=== PATIENT | male | born 1985 | race Caucasian/White ===

== ENCOUNTER 2017-05-27 01:16 | Emergency (ER) | payer BC, OTHER ==
[~2017-05-27] VITALS: Ht 182.9 cm; Wt 98.0 kg
[~2017-05-27 01:16] MED LIST: ASPI81TA28 PO; MULT-506 PO
[2017-05-27 01:20] VITALS: TEMP 36.8; Ht 182.9 cm; Wt 98.0 kg
[2017-05-27] MEDS ORDERED: OXYMETAZOLINE HCL 0.05% NA SPR 15 ML BTL ONE ×2 (01:27→01:45)
[2017-05-27] MEDS ORDERED: PROPARACAINE HCL 0.5% OP SOLN 15 ML BTL OP STA (01:37)
[2017-05-27] MEDS ORDERED: CEPHALEXIN 500MG HOME PACK 1 EA BTL PO ONE (01:45)
[2017-05-27] MEDS ORDERED: FLEC50TA20 PO (01:48)
[2017-05-27 02:07] LABS: BASO % 0.3 %; BASO ABS # 0.02 K/uL (0-0.2); EOS % 1.5 %; EOS ABS # 0.09 K/uL (0-0.5); HEMATOCRIT 42.9 % (42-52); HEMOGLOBIN 16.2 g/dL (14.0-18.0); IG# 0.01 K/uL (0.00-0.02); LYMPH ABS # 2.62 K/uL (1.2-3.4); MEAN CELL VOLUME 85.6 fL (80-100); MEAN CORPUSCULAR HEMOGLOBIN 32.3 pg (25-34); MEAN CORPUSCULAR HGB CONC 37.8 g/dl (32-36); MEAN PLATELET VOLUME 9.7 fL (7.4-10.4); MONO % 5.4 %; MONO ABS # 0.32 K/uL (0.11-0.59); NEUT % 48.6 %; NEUT ABS # 2.89 K/uL (1.4-6.5); PLATELET COUNT 254 K/uL (130-400); RED CELL DISTRIBUTION WIDTH CV 13.2 % (11.5-14.5); RED CELL DISTRIBUTION WIDTH SD 41.1 fL (36.4-46.3); WHITE BLOOD COUNT 5.95 K/uL (4.8-10.8)
[2017-05-27 02:18] LABS: INR 0.9 (0.9-1.1); PTT PATIENT 27.5 SECONDS (21.0-31.0)
[2017-05-27] MEDS ORDERED: CEPH500C2 PO (02:30)
[2017-05-27 02:43] VITALS: BP 209/140; PULSE 108; O2SAT 98
--- NOTE | 2017-05-27 02:45 | EMERGENCY ROOM VISIT NOTE ---
History First contact with patient: 01:25 Chief Complaint: NOSE BLEED (MINOR) Stated Complaint: NOSE BLEED History of Present Illness The patient is a 32 year old male who presents to the Emergency Room with complaints of nosebleed tonight. Patient had a few nosebleeds in the past. He has not seen an ENT specialist for this. Patient states he was having a beer with friends and then tasted blood and noticed he had a nosebleed. No trauma to the area. Patient states he has high blood pressure but does not want to take medication for this. Patient denies headache, chest pain, dyspnea, bleeding disorders, lightheadedness, dizziness. No drug use. Review of Systems An 10 system review of systems was completed with positives and pertinent negatives listed in the HPI. Past Medical/Surgical History Medical Problems: (1) SVT (supraventricular tachycardia) Family History Heart disease Hypertension Social History Smoking Status: Never Smoker Alcohol Use: occasionally Marital Status: single Occupation Status: employed Current/Historical Medications Scheduled Cephalexin Monohydrate (Keflex), 500 MG PO QID Flecainide (Tambocor), 50 MG PO BID Physical Exam Vital Signs Date Time Temp Pulse Resp B/P (MAP) Pulse Ox O2 Delivery O2 Flow Rate FiO2 05/27/17 01:56 110 20 179/134 96 Room Air 05/27/17 01:20 36.8 124 20 196/137 98 Room Air Physical Exam VITALS: Vitals are noted on the nurse's note and reviewed by myself. Vital signs hypertensive. GENERAL: Pleasant male with EtOH odor, in no acute distress, nondiaphoretic, well-developed well-nourished. SKIN: The skin was without rashes, erythema, edema, or bruising. There is no tenting of the skin. Capillary reflex less than 2 seconds. HEAD: Normocephalic atraumatic. EARS: External auditory canals clear, tympanic membranes pearly heredia without erythema or effusion bilaterally. EYES: Pupils equal round and reactive to light and accommodation. Conjunctivae without injection, sclerae without icterus. Extraocular movements intact. NOSE: Patent, turbinates with inflammation present and active bleeding from the left naris from the [place] area without septal hematoma bilaterally no sinus tenderness. MOUTH: Mucous membranes moist. Pharynx without erythema or exudate. Uvula midline. Airway patent. Tongue does not deviate. NECK: Supple without nuchal rigidity. No lymphadenopathy. No thyromegaly. Cervical spine is nontender. No JVD. HEART: Regular rate and rhythm without murmurs gallops or rubs. LUNGS: Clear to auscultation bilaterally without wheezes, rales or rhonchi. No retractions or accessory muscle use. ABDOMEN: Positive bowel sounds x 4. Normal tympanic percussion. Soft, nontender, without masses or organomegaly. Cooper sign negative. No guarding or rebound tenderness. No CVA tenderness MUSCULOSKELETAL: No muscle atrophy, erythema, or edema noted. NEURO: Patient was alert and oriented to person place and time. Normal sensation to light and sharp touch. No focal neurological deficits. Medical Decision & Procedures Laboratory Results 05/27/17 01:50 Red Blood Count 5.01, Mean Corpuscular Volume 85.6, Mean Corpuscular Hemoglobin 32.3, Mean Corpuscular Hemoglobin Concent 37.8, Mean Platelet Volume 9.7, Neutrophils (%) (Auto) 48.6, Lymphocytes (%) (Auto) 44.0, Monocytes (%) (Auto) 5.4, Eosinophils (%) (Auto) 1.5, Basophils (%) (Auto) 0.3, Neutrophils # (Auto) 2.89, Lymphocytes # (Auto) 2.62, Monocytes # (Auto) 0.32, Eosinophils # (Auto) 0.09, Basophils # (Auto) 0.02 Test 05/27/17 01:50 White Blood Count 5.95 K/uL (4.8-10.8) Red Blood Count 5.01 M/uL (4.7-6.1) Hemoglobin 16.2 g/dL (14.0-18.0) Hematocrit 42.9 % (42-52) Mean Corpuscular Volume 85.6 fL (80-100) Mean Corpuscular Hemoglobin 32.3 pg (25-34) Mean Corpuscular Hemoglobin Concent 37.8 g/dl (32-36) Platelet Count 254 K/uL (130-400) Mean Platelet Volume 9.7 fL (7.4-10.4) Neutrophils (%) (Auto) 48.6 % Lymphocytes (%) (Auto) 44.0 % Monocytes (%) (Auto) 5.4 % Eosinophils (%) (Auto) 1.5 % Basophils (%) (Auto) 0.3 % Neutrophils # (Auto) 2.89 K/uL (1.4-6.5) Lymphocytes # (Auto) 2.62 K/uL (1.2-3.4) Monocytes # (Auto) 0.32 K/uL (0.11-0.59) Eosinophils # (Auto) 0.09 K/uL (0-0.5) Basophils # (Auto) 0.02 K/uL (0-0.2) RDW Standard Deviation 41.1 fL (36.4-46.3) RDW Coefficient of Variation 13.2 % (11.5-14.5) Immature Granulocyte % (Auto) 0.2 % Immature Granulocyte # (Auto) 0.01 K/uL (0.00-0.02) Prothrombin Time 9.8 SECONDS (9.0-12.0) Prothromb Time International Ratio 0.9 (0.9-1.1) Activated Partial Thromboplast Time 27.5 SECONDS (21.0-31.0) Partial Thromboplastin Ratio 1.1 Medications Administered Medications (Trade) Dose Ordered Sig/Dena Route Start Time Stop Time Status Last Admin Dose Admin Oxymetazoline HCl (Afrin 0.05% Nasal [place]) 75 sprays STK-MED ONCE .ROUTE 05/27/17 01:27 05/27/17 01:28 DC 05/27/17 01:31 75 SPRAYS Cephalexin Monohydrate (Keflex 500MG Home Pack) 1 homepack NOW ONCE PO 05/27/17 01:45 05/27/17 01:46 DC 05/27/17 01:45 1 HOMEPACK Procedure Anterior Nasal Packing Indication: Epistaxis Verbal consent obtained. Risks and benefits were explained with the usual customary discussion. A time out was taken. Clots were removed with suction. The left naris was prepped with Afrin and lidocaine. A 5.5-cm nasal balloon was placed in a standard fashion with 4 cc of air. The patient tolerated this well. Hemostasis was achieved. No complications. ED Course Prior records/ancillary studies reviewed. Triage Nursing notes reviewed. Additional history obtained from friend The patient's history was concerning for epistaxis. Differential diagnosis: Etiologies such as anterior epistaxis, coagulopathy, traumatic injury, fracture , septal hematoma, posterior epistaxis as well as other pathologies were entertained. Physical examination findings: As above. Anterior bleeding source. ER treatment provided: Direct pressure Intranasal phenylephrine Anterior nasal packing as above Keflex PO On reassessment the patient felt better. Diagnostics interpreted by me: The labs revealed stable H&H and normal coags This appears to be consistent with anterior epistaxis with untreated hypertension. Patient had a few nosebleeds in the past with no blood work. This was ordered. This is unremarkable. Patient was strongly encouraged to seek treatment for his high blood pressure. He states he does not like to take medicines and will not take anything for his blood pressure. He was strongly encouraged to decrease his caffeine, alcohol, tobacco and salt intake. He is advised to return in 48 hours for nasal packing removal and to take antibiotics as directed. He is advised to return to the ER immediately for headache, chest pain, bleeding, worsening sinus symptoms or as needed. Patient was neurovascularly and neurologically intact. He is well-appearing. He did not appear intoxicated. He states he has only had a few beers. By the evaluation outlined above emergent etiologies such as coagulopathy, traumatic injury, fracture, septal hematoma, posterior epistaxis, as well as others were deemed relatively unlikely. The pt informed about the findings as listed above. All questions were answered and pleased with the treatment. Return instructions were outlined and the patient was discharged in stable condition. Outpatient prescription management: Keflex Referral: The patient was referred to ENT or the ER in 2 days for a recheck of the current condition Case reviewed with my attending The chart was completed utilizing [employer] Speech voice recognition software. Grammatical errors, random word insertions, pronoun errors, and incomplete sentences are an occassional consequence of this system due to software limitations, ambient noise, and hardware issues. Any formal questions or concerns about the content, text, or information contained within the body of this dictation should be directly addressed to the physician lead dental assistant for clarification. Medical Decision As above Medication Reconcilliation Current Medication List: was personally reviewed by me Blood Pressure Screening Patient's blood pressure: Elevated blood pressure Blood pressure disposition: Referred to PCP Impression Primary Impression: Epistaxis Additional Impression: high blood pressure Departure Information Dispostion Home / Self-Care Condition GOOD Prescriptions Cephalexin Monohydrate (KEFLEX) 500 Mg Cap 500 MG PO QID for 4 Days, #16 CAP Prov: Luisa Perry .ALIZA 05/27/17 Referrals No Doctor, Assigned (PCP) Liv Bowman M.D. Forms WORK / SCHOOL INSTRUCTIONS, HOME CARE DOCUMENTATION FORM, IMPORTANT VISIT INFORMATION Patient Instructions Nosebleeds - [facility], My [facility] Additional Instructions Your blood pressure is high today and for the past several years. I strongly recommend that you seek treatment for this. Untreated blood pressure can cause stroke heart attack and/or . Recommend that you decrease your caffeine, alcohol, tobacco and salt intake. Keflex 4 times a day for 5 days.All antibiotics can cause diarrhea. If this occurs and you feel worse or it does not resolve in 1-2 days follow up with your doctor or return to the Emergency Department as this could be signs of serious underlying problems. Any medication can cause an allergic reaction, stop the pills immediately and return to the ER for rash, hives, breathing difficulties, or swelling. Have your nasal packing removed in 2-3 days either in the ER or with ENT. Do not pull this out as you can further injure your nasal septum. Avoid scratching, rubbing, picking, or blowing your nose. The label drier your nasal passages the more likely they are to bleed. The following two products are available [id number] at most drug stores/pharmacies. Panola [place] nasal spray or similar generic saline spray to keep the nose moist 3 to 4 times a day. If bleeding recurs apply direct pressure for an uninterrupted 20 minutes. On and off pressure is much less effective because it will disturb the clots that are forming. If the bleeding is still a problem after 20 minutes or is so heavy despite the pressure return to the emergency department. Continue current medications. For ENT([id number]) follow up call Dr. Krishna office at [phone] for an appointment this week. Tell the stenographer secretary you were referred from the ER. Follow-up with your primary care physician in 2 to 3 days for a recheck of your current condition for your blood pressure. Return to the ER sooner for fevers, pain, bleeding, worsening signs or symptoms or as needed. Problem Qualifiers
[2017-05-27] MEDS ORDERED: ACET-1256 PO (20:40)
[2017-05-27] MEDS ORDERED: HYDR-5688 PO (21:29)
[2017-05-28] MEDS ORDERED: LISI10TA PO (07:14)
== END 2017-05-27 02:45 | disposition home or self-care (01) ==
LOC: C.EDB 01:17
DX: R04.0 Epistaxis (principal); R03.0 Elevated blood-pressure reading, without diagnosis of hypertension; Z82.49 Family history of ischemic heart disease and other diseases of the circulatory system; Z79.899 Other long term (current) drug therapy

== ENCOUNTER 2017-05-27 19:16 | Emergency (ER) | payer OTHER ==
[~2017-05-27] VITALS: Ht 182.9 cm; Wt 95.2 kg
[~2017-05-27 19:16] MED LIST changes: +CEPH500C2 PO; +FLEC50TA20 PO
[2017-05-27 19:19] VITALS: O2SAT 99; Ht 182.9 cm; Wt 95.2 kg
[2017-05-27] MEDS ORDERED: OXYMETAZOLINE HCL 0.05% NA SPR 15 ML BTL ONE (19:28)
[2017-05-27] MEDS ORDERED: ACET-1256 PO (20:40)
[2017-05-27 20:59] VITALS: BP 198/136; PULSE 85
[2017-05-27] MEDS ORDERED: HYDR-5688 PO (21:29)
[2017-05-27] MEDS ORDERED: NORCO 5/325MG HOME PACK PO ONE (21:30)
--- NOTE | 2017-05-27 23:47 | EMERGENCY ROOM VISIT NOTE ---
History First contact with patient: 19:23 Chief Complaint: NOSE BLEED (MINOR) Stated Complaint: REEVALUATE NOSE BLEED History of Present Illness The patient is a 32 year old male who presents to the Emergency Room bleeding from the right side of his nose. The patient was seen about 16 hours ago at this facility with bleeding from the left side of the nose. A rapid Rhino was placed at that initial visit and the patient was started on Keflex. The patient states that he had been doing well for several hours, but had spontaneous bleeding from the right side nares that began about 20 minutes ago. He is not complaining of head pain, neck pain, chest pain, or shortness of breath. He rates his current discomfort a 4/10. Review of Systems More than 10 systems were reviewed and otherwise negative with the exception of history of present illness. Past Medical/Surgical History Medical Problems: (1) SVT (supraventricular tachycardia) Family History Heart disease Hypertension Social History Smoking Status: Former Smoker Alcohol Use: occasionally Marital Status: single Occupation Status: employed Current/Historical Medications Scheduled Cephalexin Monohydrate (Keflex), 500 MG PO QID Flecainide (Tambocor), 50 MG PO BID Scheduled PRN Acetaminophen (Tylenol), 1,000 MG PO BID PRN for Pain Hydrocodone/Acetaminophen 5MG/325MG (Red Devil 5MG/325MG), 1 TABLET PO Q6 PRN for Pain Physical Exam Vital Signs Date Time Temp Pulse Resp B/P (MAP) Pulse Ox O2 Delivery O2 Flow Rate FiO2 05/27/17 20:59 85 16 195/102 198/136 05/27/17 19:19 128 20 210/121 99 Room Air Physical Exam VITALS: Vitals are noted on the nurse's note and reviewed by myself. Vital signs with elevated blood pressure GENERAL: Anxious appearing white male who is cooperative with the examination. NOSE: Rapid Rhino appreciated in the left side nares. There is red blood in the right nares with what appears to be an anterior origin. MOUTH: Mucous membranes moist. Tonsils are not enlarged. Mild amount of bright red blood is noted in the posterior pharynx NECK: Supple without nuchal rigidity. No lymphadenopathy. No thyromegaly. Cervical spine is nontender. HEART: Regular rate and rhythm without murmurs gallops or rubs. LUNGS: Clear to auscultation bilaterally without wheezes, rales or rhonchi. No retractions or accessory muscle use. Medical Decision & Procedures Medications Administered Medications (Trade) Dose Ordered Sig/Dena Route Start Time Stop Time Status Last Admin Dose Admin Acetaminophen/ Hydrocodone Bitart (Red Devil 5/325mg Home Pack) 1 homepack UD ONCE PO 05/27/17 21:30 05/27/17 21:31 DC 05/27/17 21:30 1 HOMEPACK ED Course Physical exam and history were performed. Nursing notes, EMR, and Medication List were personally reviewed. Patient appears to have epistaxis that began about 20 minutes ago. He had a similar episode earlier today and had a left-sided packing placed. Afrin was pulled by nursing and placed into the right side nares. I initially attempted to place a 7.5 cm rapid Rhino, however I was not able to advance this. Afterwards a 4.5 cm rapid Rhino was positioned and inflated. This did help provide hemostasis. The patient appears anxious on examination he does have elevated blood pressure. I did offer him medication to assist with this, however he states that he is driving home and is not able to get a ride. He does not wish for anything for his blood pressure at this time. The patient had significant improvement of the bleeding after the placement of the second Rhino Rocket, however he did have some very mild persistent spitting of blood into an emesis bag. Reevaluation of the posterior pharynx does not show significant signs of a posterior bleed. The case was reviewed with my attending physician, and unfortunately we do not have formal ENT operations technician at the [facility]. Overall the patient was monitored for nearly 3 hours here in the emergency department without significant rebleeding episode. Near the end of his ER stay, the patient sneezed, and partially dislodged the right side packing. This was removed, and I was able to further inspect the right side nares, which appears to show an anterior bleeding origin. A second rapid Rhino was placed into the right side nares and inflated. The patient tolerated this well. He continued without significant bleeding episode. The patient will need to follow with ENT regarding the nosebleeding, as well as his primary care physician regarding the blood pressure. He is to continue his antibiotics. I will give him a short course of Vicodin for pain control. He was otherwise invited back to the ER with any new, worsening, or concerning symptoms. The chart was completed utilizing [employer] Speech Voice Recognition Software. Grammatical errors, random word insertions, pronoun errors, and incomplete sentences are an occasional consequence of this system due to software limitations, ambient noise, and hardware issues. Any formal questions or concerns about the content, text, or information contained within the body of this dictation should be directly addressed to the provider for clarification. . Medical Decision Differential diagnosis: Etiologies such as anterior epistaxis, coagulopathy, traumatic injury, fracture , septal hematoma, posterior epistaxis as well as other pathologies were entertained. Impression Primary Impression: Epistaxis Additional Impression: Hypertension Departure Information Dispostion Home / Self-Care Condition FAIR Prescriptions Hydrocodone/Acetaminophen 5MG/325MG (Red Devil 5MG/325MG) Tab 1 TABLET PO Q6 Y for Pain, #12 TAB For Initial Treatment Prov: Angel Acevedo PA-C 05/27/17 Referrals No Doctor, Assigned (PCP) Liv Bowman M.D. Forms HOME CARE DOCUMENTATION FORM, IMPORTANT VISIT INFORMATION Patient Instructions My [facility] Additional Instructions You were seen and evaluated today on an emergency basis only. This is not a substitute for, or an effort to provide, complete comprehensive medical care. It is not possible to recognize and treat all injuries or illnesses in a single emergency department visit. For this reason it is recommended that you followup with ENT, Dr. Bowman's office, by telephone in the morning to arrange a follow-up. Continue your antibiotics as previously prescribed. Red Devil (hydrocodone/acetaminophen) 5/325 mg every 6 hours as needed for worsening breakthrough pain. Do not drink or drive on Red Devil. This medication will likely make you tired. Do not take Red Devil and Tylenol at the same time as both contain acetaminophen. Red Devil may cause constipation. You may wish to take an [id number] stool softener like Colace if this occurs. You are welcome to return to the emergency department anytime with new, worsening, or concerning symptoms. Problem Qualifiers
[2017-05-28] MEDS ORDERED: LISI10TA PO (07:14)
== END 2017-05-27 22:00 | disposition home or self-care (01) ==
LOC: C.EDB 19:17 → C.EDD 22:00
DX: R04.0 Epistaxis (principal); R03.0 Elevated blood-pressure reading, without diagnosis of hypertension; I47.1 Supraventricular tachycardia; Z87.891 Personal history of nicotine dependence; Z82.49 Family history of ischemic heart disease and other diseases of the circulatory system

== ENCOUNTER 2017-05-27 22:58 | Emergency (ER) | payer OTHER ==
[~2017-05-27] VITALS: Ht 182.9 cm; Wt 90.0 kg
[~2017-05-27 22:58] MED LIST changes: +ACET-1256 PO; +HYDR-5688 PO
[2017-05-27 23:01] VITALS: Ht 182.9 cm; Wt 90.0 kg
[2017-05-27] MEDS ORDERED: OXYMETAZOLINE HCL 0.05% NA SPR 15 ML BTL ONE (23:12)
--- NOTE | 2017-05-27 23:18 | EMERGENCY ROOM VISIT NOTE ---
History Report prepared by Mg: Dashawn Hinton Under the Supervision of: Dr. Dayana Billingsley M.D. First contact with patient: 23:08 Chief Complaint: NOSE BLEED (MINOR) Stated Complaint: NOSE BLEED History of Present Illness The patient is a 32 year old male who presents to the Emergency Room for a severe and constant nose bleed that began around 0200 this morning, 21 hours ago. This is the patient's third visit to the ER in the past 24 hours due to this nose bleed. The patient first came to the ED at 0230 this morning and had a rhino rocket placed in the left nostril. He went home and the bleeding stopped for a short time until the nose began to bleed through the right naris. He came back in about 90 minutes ago and had another rhino rocket placed in the right nostril. The blood is now draining down the back of his throat. He does complain of pain in the nose. 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 A total of 10 systems reviewed and were otherwise negative. Past Medical & Surgical Medical Problems: (1) SVT (supraventricular tachycardia) Afib Atrial fibrillation Cocaine use SVT (supraventricular tachycardia) Family History Heart disease Hypertension Social History Smoking Status: Never Smoker Alcohol Use: occasionally Drug Use: cocaine Marital Status: single Occupation Status: employed Current/Historical Medications Scheduled Cephalexin Monohydrate (Keflex), 500 MG PO QID Flecainide (Tambocor), 50 MG PO BID Lisinopril (Prinivil), 10 MG PO DAILY Scheduled PRN Acetaminophen (Tylenol), 1,000 MG PO BID PRN for Pain Hydrocodone/Acetaminophen 5MG/325MG ([place] 5MG/325MG), 1 TABLET PO Q6 PRN for Pain Allergies Coded Allergies: Ciprofloxacin (Verified Allergy, Intermediate, FACIAL/ARM SWELLING, ) Physical Exam Vital Signs Date Time Temp Pulse Resp B/P (MAP) Pulse Ox O2 Delivery O2 Flow Rate FiO2 05/28/17 07:00 83 122/79 05/28/17 06:39 84 05/28/17 06:28 119/70 05/28/17 05:46 76 14 05/28/17 05:41 82 14 05/28/17 05:01 128/92 05/28/17 04:41 79 14 05/28/17 04:36 77 14 05/28/17 04:31 130/83 05/28/17 04:06 92 16 05/28/17 04:01 122/84 05/28/17 03:41 95 16 05/28/17 03:31 140/89 05/28/17 03:22 76 05/28/17 03:11 85 16 05/28/17 03:06 86 16 05/28/17 03:01 146/91 05/28/17 02:31 164/106 05/28/17 02:11 92 16 05/28/17 02:06 88 16 05/28/17 02:01 164/107 05/28/17 01:56 170/111 05/28/17 01:55 171/118 05/28/17 01:50 182/117 05/28/17 01:34 174/120 05/28/17 01:21 81 17 184/123 97 Room Air 05/28/17 01:21 184/123 05/28/17 01:06 81 12 98 05/28/17 01:01 81 12 161/121 98 Room Air 05/28/17 00:31 85 10 148/113 96 Room Air 05/28/17 00:26 77 14 160/113 97 Room Air 05/28/17 00:21 83 18 152/117 96 Room Air 05/28/17 00:17 83 14 157/117 95 Room Air 05/28/17 00:11 84 19 128/107 95 Room Air 05/28/17 00:10 86 16 169/115 96 Room Air 05/28/17 00:06 86 11 162/115 96 Room Air 05/28/17 00:01 85 24 172/115 96 Room Air 05/27/17 23:56 88 16 166/107 93 Room Air 05/27/17 23:51 85 14 163/114 95 Room Air 05/27/17 23:51 88 05/27/17 23:51 84 10 163/114 98 Room Air 05/27/17 23:47 89 16 159/118 98 Room Air 05/27/17 23:44 93 16 168/125 98 Room Air 05/27/17 23:01 111 22 183/151 98 Room Air Physical Exam Vital signs reviewed. General: Patient is anxious and hypertensive on exam. HEENT: No scleral icterus, PERRLA, neck supple. Atraumatic. The patient is bleeding dark red blood from the nose down the back of the throat. Patient is vomiting dark red blood. Cardiovascular: Tachycardic rate and regular rhythm, no extra sounds. Pulmonary: Clear to auscultation bilaterally, normal work of breathing. Abdomen: Soft, nontender, nondistended, positive bowel sounds. Musculoskeletal: Atraumatic, no peripheral edema. Neurologic: Patient awake alert and oriented x 3, full strength in all 4 extremities. Cranial nerves 2 through 12 grossly intact. Skin: Warm, dry, no rash Medical Decision & Procedures Laboratory Results 05/27/17 23:46 Red Blood Count 5.26, Mean Corpuscular Volume 85.0, Mean Corpuscular Hemoglobin 32.1, Mean Corpuscular Hemoglobin Concent 37.8, Mean Platelet Volume 10.2, Neutrophils (%) (Auto) 67.0, Lymphocytes (%) (Auto) 26.6, Monocytes (%) (Auto) 5.7, Eosinophils (%) (Auto) 0.3, Basophils (%) (Auto) 0.2, Neutrophils # (Auto) 9.28, Lymphocytes # (Auto) 3.68, Monocytes # (Auto) 0.79, Eosinophils # (Auto) 0.04, Basophils # (Auto) 0.03 05/28/17 05:17 05/27/17 23:46 Test 05/27/17 23:46 White Blood Count 13.85 K/uL (4.8-10.8) Red Blood Count 5.26 M/uL (4.7-6.1) Hemoglobin 16.9 g/dL (14.0-18.0) Hematocrit 44.7 % (42-52) Mean Corpuscular Volume 85.0 fL (80-100) Mean Corpuscular Hemoglobin 32.1 pg (25-34) Mean Corpuscular Hemoglobin Concent 37.8 g/dl (32-36) Platelet Count 300 K/uL (130-400) Mean Platelet Volume 10.2 fL (7.4-10.4) Neutrophils (%) (Auto) 67.0 % Lymphocytes (%) (Auto) 26.6 % Monocytes (%) (Auto) 5.7 % Eosinophils (%) (Auto) 0.3 % Basophils (%) (Auto) 0.2 % Neutrophils # (Auto) 9.28 K/uL (1.4-6.5) Lymphocytes # (Auto) 3.68 K/uL (1.2-3.4) Monocytes # (Auto) 0.79 K/uL (0.11-0.59) Eosinophils # (Auto) 0.04 K/uL (0-0.5) Basophils # (Auto) 0.03 K/uL (0-0.2) RDW Standard Deviation 41.0 fL (36.4-46.3) RDW Coefficient of Variation 13.3 % (11.5-14.5) Immature Granulocyte % (Auto) 0.2 % Immature Granulocyte # (Auto) 0.03 K/uL (0.00-0.02) Anion Gap 11.0 mmol/L (3-11) Est Creatinine Clear Calc Drug Dose 83.8 ml/min Estimated GFR () 77.2 Estimated GFR (Non- 66.6 BUN/Creatinine Ratio 13.6 (10-20) Calcium Level 9.7 mg/dl (8.5-10.1) Total Bilirubin 1.3 mg/dl (0.2-1) Direct Bilirubin 0.2 mg/dl (0-0.2) Aspartate Amino Transf (AST/SGOT) 37 U/L (15-37) Alanine Aminotransferase (ALT/SGPT) 59 U/L (12-78) Alkaline Phosphatase 104 U/L (45-117) Total Protein 8.6 gm/dl (6.4-8.2) Albumin 4.2 gm/dl (3.4-5.0) Laboratory results per my review. Medications Administered Medications (Trade) Dose Ordered Sig/Dena Route Start Time Stop Time Status Last Admin Dose Admin Lorazepam (Ativan Tab) 1 mg STK-MED ONCE .ROUTE 05/27/17 23:21 05/27/17 23:22 DC 05/27/17 23:27 1 MG Labetalol HCl (Normodyne IV) 10 mg NOW STAT IV 05/27/17 23:25 05/27/17 23:27 DC 05/27/17 23:43 10 MG Ondansetron HCl (Zofran Inj) 4 mg STK-MED ONCE .ROUTE 3/27/18 23:36 05/27/17 23:37 DC 05/27/17 23:42 4 MG Sodium Chloride 1,000 ml @ 999 mls/hr Q1H1M STAT IV 05/28/17 00:24 05/28/17 01:24 DC 05/28/17 00:45 999 MLS/HR Chlorthalidone (Hygroton Tab) 25 mg NOW STAT PO 05/28/17 00:24 05/28/17 00:26 DC 05/28/17 00:43 25 MG Lisinopril (Zestril Tab) 10 mg NOW STAT PO 05/28/17 00:50 05/28/17 00:51 DC 05/28/17 01:22 10 MG Hydralazine HCl (HydrALAZINE INJ) 10 mg NOW STAT IV. 05/28/17 01:40 05/28/17 01:41 DC 05/28/17 01:49 10 MG Oxymetazoline HCl (Afrin 0.05% Nasal [place]) 75 sprays STK-MED ONCE .ROUTE 05/28/17 01:41 05/28/17 01:42 DC 05/28/17 01:41 75 SPRAYS Acetaminophen (Tylenol Tab) 650 mg NOW STAT PO 05/28/17 02:09 05/28/17 02:10 DC 05/28/17 02:22 650 MG Lorazepam (Ativan Tab) 1 mg NOW STAT SL 05/28/17 02:12 05/28/17 02:14 DC 05/28/17 02:22 1 MG ED Course 2309: Past medical records reviewed. The patient was evaluated in room C9. A complete history and physical examination was performed. 2312: Ordered Oxymetazoline HCl 75 sprays. 2320: Ordered Lorazepam 1 mg. 2325: Ordered Labetalol HCl 10 mg IV. 2336: Ordered Zofran 4 mg 2337: I was called to the patient's room STAT at this time. The patient vomited a large amount of dark red blood at this time and had a vasovagal episode. He is pale and diaphoretic. He admits that he is scarred. 0011: I checked on the patient it seems as though the bleeding is slowing. 0024: Ordered Chlorthalidone 25 mg PO, Sodium Chloride 1000 mL @ 999 mL/hr IV. 0042: I checked on the patient the nose is not bleeding. 0050: Ordered Lisinopril 10 mg PO. 0050: I discussed the case with the on-call pharmacist in regards to the patients blood pressure. 0140: Ordered Hydralazine HCl 10 mg IV. 0156: I checked on the patient he is doing well. 0209: Ordered Acetaminophen 650 mg PO. 0212: Ordered Lorazepam 1 mg SL. 0643: I discussed the case with Dr. Yu - ENT. He suggests that we have someone call his office at [phone] to set up an appointment. The patient is in agreement and will also set up a PCP with case management. Following all of this , the patient will be discharged home. Medical Decision Differential diagnosis: Etiologies such as anterior epistaxis, coagulopathy, traumatic injury, fracture , septal hematoma, posterior epistaxis as well as other pathologies were entertained. This patient was evaluated and appeared to be in no significant distress. IV access was obtained and laboratory work was drawn. The patient's H&H appears to be stable. He is found to be hypertensive and tachycardic. I am suspicious for the patient's ongoing use of alcohol and cocaine. Patient's blood pressure has been noted to be markedly elevated in the last 3 years worth of visits. He states he has not had time to follow-up with a primary care physician or his orthopaedic technologist. Nasal packing was removed. Patient was given Afrin nasal spray and hematoma into each nostril. He was observed until the bleeding subsided. An attempt at a long 7.5 cm Rhino Rocket was made into the left nares. This was unsuccessful. Patient was given 25 mg of chlorthalidone, 10 mg of lisinopril and 10 mg of IV labetalol. Patient's blood pressure was temporarily improved and then worsened. He was then given 10 mg of IV hydralazine. Patient was reevaluated on several occasions and was feeling much improved. His blood pressure did come down which he tolerated well. The patient was resting comfortably for the better part of 6 hours without any additional bleeding. His blood pressure has improved remarkably. Patient was advised to avoid cocaine altogether. He should minimize/stop his drinking. ENT, Dr. Yu, was consulted for follow-up. Case management will make appointments for the patient in Dr. Yu's office as well as PCP office before the end of the week. Patient expressed an understanding of the instructions and agrees. He will return to the emergency department for worsening of symptoms or any medical concerns. Medication Reconcilliation Current Medication List: was personally reviewed by me Blood Pressure Screening Patient's blood pressure: Elevated blood pressure Blood pressure disposition: Referred to PCP Consults Time Called: [phone] Consulting Physician: Dr. Gigi POP Returned Call: [phone] I discussed the case with Dr. Gigi POP. He suggests that we have someone call his office at [phone] to set up an appointment. Impression Primary Impression: Epistaxis Additional Impressions: Cocaine use Hypertension Critical Care I have personally spent greater than 45 minutes of critical care time in the direct management of this patient. This includes bedside care, interpretation of diagnostic studies, and testing, discussion with consultants, patient, and family members, and other required patient management activities. This 45 minutes is in excess of all separately billable procedures. Scribe Attestation The scribe's documentation has been prepared under my direction and personally reviewed by me in its entirety. I confirm that the note above accurately reflects all work, treatment, procedures, and medical decision making performed by me. Departure Information Dispostion Home / Self-Care Prescriptions Lisinopril (Prinivil) 10 Mg Tab 10 MG PO DAILY for 30 Days, #30 TAB Prov: Dayana Billingsley M.D. 05/28/17 Referrals No Doctor, Assigned (PCP) Patient Instructions My [facility] Problem Qualifiers
[2017-05-27] MEDS ORDERED: NURSING VERBAL MED ORDER ONE (23:20)
[2017-05-27] MEDS ORDERED: LORAZEPAM 1 MG TAB ONE (23:21)
[2017-05-27] MEDS ORDERED: LABETALOL HCL IV 5 MG/ML 20ML IV STA (23:25)
[2017-05-27] MEDS ORDERED: ONDANSETRON INJ 2 MG/ML 2 ML VIAL ONE (23:36)
[2017-05-28 00:01] LABS: BASO % 0.2 %; BASO ABS # 0.03 K/uL (0-0.2); EOS % 0.3 %; EOS ABS # 0.04 K/uL (0-0.5); HEMATOCRIT 44.7 % (42-52); HEMOGLOBIN 16.9 g/dL (14.0-18.0); IG# 0.03 K/uL (0.00-0.02); LYMPH % 26.6 %; LYMPH ABS # 3.68 K/uL (1.2-3.4); MEAN CORPUSCULAR HEMOGLOBIN 32.1 pg (25-34); MEAN CORPUSCULAR HGB CONC 37.8 g/dl (32-36); MEAN PLATELET VOLUME 10.2 fL (7.4-10.4); MONO % 5.7 %; MONO ABS # 0.79 K/uL (0.11-0.59); NEUT ABS # 9.28 K/uL (1.4-6.5); PLATELET COUNT 300 K/uL (130-400); RED CELL DISTRIBUTION WIDTH CV 13.3 % (11.5-14.5); WHITE BLOOD COUNT 13.85 K/uL (4.8-10.8)
[2017-05-28 00:21] LABS: ALBUMIN 4.2 gm/dl (3.4-5.0); CALCIUM 9.7 mg/dl (8.5-10.1); CREATININE 1.39 mg/dl (0.60-1.40); POTASSIUM 3.3 mmol/L (3.5-5.1)
[2017-05-28 00:24] LABS: TOTAL PROTEIN 8.6 gm/dl (6.4-8.2)
[2017-05-28] MEDS ORDERED: SODIUM CHLORIDE 0.9% 1000ML 1,000 ML IV STA (00:24)
[2017-05-28] MEDS ORDERED: CHLORTHALIDONE 25 MG TAB PO STA (00:24)
[2017-05-28] MEDS ORDERED: LISINOPRIL 10 MG TAB PO STA (00:50)
[2017-05-28] MEDS ORDERED: HydrALAZINE HCL 20 MG/ML VIAL IV. STA (01:40)
[2017-05-28] MEDS ORDERED: OXYMETAZOLINE HCL 0.05% NA SPR 15 ML BTL ONE (01:41)
[2017-05-28] MEDS ORDERED: ACETAMINOPHEN 325 MG TAB PO STA (02:09)
[2017-05-28] MEDS ORDERED: LORAZEPAM 1 MG TAB SL STA (02:12)
[2017-05-28 05:28] LABS: HEMATOCRIT 37.5 % (42-52); HEMOGLOBIN 14.2 g/dL (14.0-18.0)
[2017-05-28] MEDS ORDERED: LISI10TA PO (07:14)
[2017-05-28 08:28] VITALS: BP 131/81; PULSE 88; O2SAT 97
== END 2017-05-28 08:30 | disposition home or self-care (01) ==
LOC: C.EDB 22:59
DX: R04.0 Epistaxis (principal); F14.90 Cocaine use, unspecified, uncomplicated; I10 Essential (primary) hypertension; I47.1 Supraventricular tachycardia; I48.91 Unspecified atrial fibrillation; Z88.1 Allergy status to other antibiotic agents

== ENCOUNTER → 2017-05-30 | Outpatient (CLI) | payer OTHER ==
[~2017-05-30] MED LIST changes: -ASPI81TA28 PO; +CEPH500C PO; +LISI10TA PO; -MULT-506 PO
[2017-05-30 16:56] LABS: INR 0.9 (0.9-1.1); PTT PATIENT 26.7 SECONDS (21.0-31.0)
== END | disposition home or self-care (01) ==
LOC: C.LAB 14:57
PROVIDERS: ATTEND Physician Assistant
DX: R04.0 Epistaxis (principal)

== ENCOUNTER 2017-05-31 02:06 | Emergency (ER) | payer OTHER ==
[~2017-05-31] VITALS: Ht 182.9 cm; Wt 94.7 kg
[~2017-05-31 02:06] MED LIST changes: -CEPH500C PO
[2017-05-31 02:08] VITALS: Ht 182.9 cm; Wt 94.7 kg
[2017-05-31] MEDS ORDERED: LORAZEPAM 1 MG TAB SL STA (02:31)
--- NOTE | 2017-05-31 02:48 | EMERGENCY ROOM VISIT NOTE ---
History Report prepared by Mg: Nora Joseph Under the Supervision of: Dr. Raya Perez D.O. First contact with patient: 02:16 Chief Complaint: NOSE BLEED (MINOR) Stated Complaint: NOSE BLEED History of Present Illness The patient is a 32 year old male who presents to the Emergency Room with complaints of an episode of a nose bleed starting prior to arrival. The patient states that he has been here a few times for it. He reports that it hasn't really stopped since Friday. He states that he saw ENT yesterday and had it cauterized. He states that it lasted until now. He reports it started while he was lying on the couch watching TV after using Afrin. He reports that he used the Afrin before it started bleeding and was instructed to do so. The patient complains of being anxious. The patient notes that he has newly diagnosed hypertension and was started on Lisinopril 2 days ago. Source of History: patient Onset: prior to arrival Position: nose Quality: other (bleeding) Timing: other (episode) Note: The patient complains of feeling anxious. Review of Systems See HPI for pertinent positives & negatives. A total of 6 systems reviewed and were otherwise negative. Past Medical & Surgical Medical Problems: (1) Atrial fibrillation (2) Cocaine use (3) SVT (supraventricular tachycardia) Family History Heart disease Hypertension Social History Smoking Status: Former Smoker Alcohol Use: occasionally Drug Use: cocaine Marital Status: single Occupation Status: employed Current/Historical Medications Scheduled Cephalexin Monohydrate (Keflex), 500 MG PO QID Flecainide (Tambocor), 50 MG PO BID Lisinopril (Prinivil), 10 MG PO DAILY Scheduled PRN Acetaminophen (Tylenol), 1,000 MG PO BID PRN for Pain Allergies Coded Allergies: Ciprofloxacin (Verified Allergy, Intermediate, FACIAL/ARM SWELLING, ) Physical Exam Vital Signs Date Time Temp Pulse Resp B/P (MAP) Pulse Ox O2 Delivery O2 Flow Rate FiO2 05/31/17 04:27 82 18 156/107 98 05/31/17 03:18 82 18 156/107 98 Room Air 05/31/17 02:08 104 18 170/107 97 Room Air Physical Exam Nose: Left nares has slight ooze. Majority of cautery remains. Oropharynx: Small clot noted. Medical Decision & Procedures Medications Administered Medications (Trade) Dose Ordered Sig/Dena Route Start Time Stop Time Status Last Admin Dose Admin Lorazepam (Ativan Tab) 1 mg NOW STAT SL 05/31/17 02:31 05/31/17 02:32 DC 05/31/17 02:38 1 MG Lisinopril (Zestril Tab) 10 mg NOW STAT PO 05/31/17 03:39 05/31/17 03:40 DC 05/31/17 04:16 10 MG Procedure 0231: Ordered Ativan Tab 1 mg SL. 0339: Ordered Lisinopril 10 mg PO. ED Course 0222: Past medical records reviewed. The patient was evaluated in room A11B. A complete history and physical exam was performed. 0231: The patient appeared quite anxious. I ordered Ativan Tab 1 mg SL. 0318: The patients blood pressure came down to 156/107 and his heart rate came down into the 80s. 0330: Upon reevaluation, the patient is doing well. I discussed findings and results with him. He verbalized agreement of the treatment plan. The patient was discharged home. 0339: Ordered Lisinopril 10 mg PO. 0420: Nursing staff notified me that the patient was concerned that it had started to bleed again. I reexamined his posterior oropharynx and there was no blood present. There was no bleeding from the nose. Medical Decision The patient is a 32 year old male who presents to the Emergency Room with complaints of an episode of a nose bleed starting prior to arrival. Differential diagnoses include hypertensive crisis, recurrent epistaxis. This is a 32-year-old male patient who presents to the emergency department with an episode of recurrent epistaxis. The patient has had multiple nosebleeds in the past couple of weeks. He was seen by ENT just 2 days ago where he was cauterized. The patient has a history of hypertension was just started on lisinopril 2 days ago. This evening, the patient used Afrin as was suggested by ENT and wonders if this could have significantly elevated his blood pressure and because the nose to start bleeding again. This is certainly possible. The patient also describes using saline nasal spray. Upon presentation, the patient did have some slight bleeding from the left nares. Nursing staff placed a nose clamp. The nose was no longer bleeding on my physical exam. There was some clot in the posterior oropharynx that the patient was able to evacuate. We watch the patient's blood pressure. He was given a dose of Ativan as he was significantly anxious. This did bring his blood pressure heart rate down nicely. Patient's diastolic blood pressure began to rise again and he was given his dose of lisinopril here in the emergency department. I gave the patient very specific conservative care instructions for the nose. I have asked him to follow-up with ENT if the wheezing persists. If it would start to bleed more heavily, he was instructed to hold pressure for at least 20 minutes. The patient is keeping a log of his blood pressures. I have asked him to follow -up with his PCP with regards to this Medication Reconcilliation Current Medication List: was personally reviewed by me Blood Pressure Screening Patient's blood pressure: Elevated blood pressure Blood pressure disposition: Referred to PCP Impression Primary Impression: Epistaxis Additional Impression: Hypertension Scribe Attestation The scribe's documentation has been prepared under my direction and personally reviewed by me in its entirety. I confirm that the note above accurately reflects all work, treatment, procedures, and medical decision making performed by me. Departure Information Dispostion Home / Self-Care Referrals No Doctor, Assigned (PCP) Forms HOME CARE DOCUMENTATION FORM, IMPORTANT VISIT INFORMATION, WORK / SCHOOL INSTRUCTIONS Patient Instructions My [facility] [place] [facility] Additional Instructions Avoi any manipulation of the nose for next 48 hours. Use humidifier or vaporizer in your bedroom. Take Lisinopril as directed. try to minimize stress and anxiety to keep BP down. If bleeding starts again, hold pressure for at least 20 minutes Problem Qualifiers Additional Impression: Hypertension Hypertension type: unspecified Qualified Codes: I10 - Essential (primary) hypertension
[2017-05-31] MEDS ORDERED: LISI10TA PO (03:04)
[2017-05-31] MEDS ORDERED: CEPH500C PO (03:05)
[2017-05-31] MEDS ORDERED: LISINOPRIL 10 MG TAB PO STA (03:39)
[2017-05-31 04:27] VITALS: BP 156/107; PULSE 82; O2SAT 98
== END 2017-05-31 04:29 | disposition home or self-care (01) ==
LOC: C.EDB 02:07 → C.EDA 04:29
DX: R04.0 Epistaxis (principal); I10 Essential (primary) hypertension; I48.91 Unspecified atrial fibrillation; F14.90 Cocaine use, unspecified, uncomplicated; I47.1 Supraventricular tachycardia; Z82.49 Family history of ischemic heart disease and other diseases of the circulatory system; Z87.891 Personal history of nicotine dependence; Z79.899 Other long term (current) drug therapy; Z88.1 Allergy status to other antibiotic agents

== ENCOUNTER → 2017-06-02 | Outpatient (CLI) | payer OTHER ==
[~2017-06-02] MED LIST changes: +CEPH500C PO; -CEPH500C2 PO; -HYDR-5688 PO
--- NOTE | 2017-06-02 17:02 | DIAGNOSTIC IMAGING REPORT ---
LEFT LOWER EXTREMITY VENOUS DOPPLER CLINICAL HISTORY: LEFT LEG PAIN, R/O DVT COMPARISON STUDY: No previous studies for comparison. TECHNIQUE: Sonography of the deep venous system of the left lower extremity was performed. Compression and augmentation were evaluated. FINDINGS: The left common femoral, superficial femoral and popliteal veins were compressible. Augmentation was normal. Flow was shown within the deep calf vessels. IMPRESSION: No evidence of deep venous thrombus within the left lower extremity. Electronically signed by: Beka Verdugo M.D. 06/02/2017 5:00 PM Dictated Date/Time: 06/02/2017 5:00 PM
== END | disposition home or self-care (01) ==
LOC: C.ULTR 16:19
PROVIDERS: ATTEND Physician Assistant Medical
DX: M25.572 Pain in left ankle and joints of left foot (principal)